=== PATIENT | male | born 1965 | race Caucasian/White ===

== ENCOUNTER → 2017-07-08 | Outpatient (CLI) | payer OTHER ==
--- NOTE | 2017-07-08 12:18 | US ---
LOWER EXTREMITY VENOUS INSUFFICIENCY SIDE PERFORMED: Bilateral Left leg swelling, no hx of blood clots or on blood thinners 1) Color flow is present and patency is documented in the following vessels. No DVT or SVT is noted . EIV Common Femoral Vein Deep Femoral Vein Femoral Vein Popliteal Vein Proximal Calf Veins Greater Saph Vein Upper Small Saph Vein 2) There is venous reflux noted at the following venous levels: No venous reflux seen Limited exam due to patient unable to hold valsalva maneuver Doppler waveforms appear unremarkable. IMPRESSION: 1. No left lower extremity venous reflux evident.
== END ==
LOC: RADUSWWP 09:47
PROVIDERS: ATTEND Family Medicine
DX: I87.2 Venous insufficiency (chronic) (peripheral) (principal); M79.605 Pain in left leg
CPT/HCPCS: 93970

== ENCOUNTER → 2017-08-31 | Outpatient (CLI) | payer OTHER ==
--- NOTE | 2017-08-31 17:51 | CONS ---
CONSULTATION REASON FOR CONSULTATION: Falling asleep easily and always tired. A 51-year-old obese male patient. The patient has incarcerated for a total of 30 years between 1996 and 2016. The patient was released from nursing home recently. He currently is under the care of Dr. Hale and the patient is being investigated for obstructive sleep apnea, knowing that he has been excessively fatigued and sleepy. He snores. He goes to bed between 10:00 p.m. and 11:00 p.m., wakes up between 3:00 a.m. to 4:00 a.m. in the morning and he takes 2-3 naps during the day, these naps lasting between 30 minutes up to 2 hours. Despite this, he is feeling tired and sleepy and this raises concern for obstructive sleep apnea. No reported witnessed apneas in this patient. No restlessness in lower extremities. No chronic pain. He is obese and he has gained weight over the years in the order of 20-30 pounds. No family history of obstructive sleep apnea, although he thinks his sister had narcolepsy. The patient himself has no sleep paralysis, hypnagogic hallucinations or cataplexy. No substance abuse. He is a nonsmoker. PAST MEDICAL HISTORY: 1. Hypertension. 2. Acid reflux. 3. Lactose intolerance. 4. Degenerative arthritis. 5. Chronic leg edema. SURGICAL HISTORY: Negative. ALLERGIES: Not known. OUTPATIENT MEDICATION LIST: Includes: 1. Clindamycin gel. 2. Clotrimazole 1% cream. 3. Lasix 20 mg p.o. daily. 4. Meclizine 25 mg p.o. on a p.r.n. basis as needed. 5. Omeprazole 20 mg p.o. daily. 6. Potassium 10 mg daily. 7. Simethicone 125 mg chewable tablet a day and. 8. Tylenol on a p.r.n. basis. SOCIAL HISTORY: The patient is a nonsmoker. He quit smoking back in 1984. No history of alcohol. No history of IV drugs. FAMILY HISTORY: Questionable history of narcolepsy in his sister, who also had CVAs and she from complications of myocardial infarction. Father was obese. REVIEW OF SYSTEMS: A 12-point review of systems was done. Positive findings are mentioned above in the history of present illness. The patient has difficult mobility and gait, walks around with the help of a cane. He has issues with balance and dizziness. No head trauma for now. No grinding of the teeth. No sleepwalking or sleep talking. No sleep paralysis, hallucinations or cataplexy. No anxiety or depression. No palpitation. No heartburn. No cough or sputum production. No restlessness in the lower extremities. He has no dysuria, frequency or urgency. No open wounds or sores in the lower extremities. BP is 131/77, pulse 82, respirations 16, temperature 16, temperature 97.1, saturation 91% on room air. Neck size 17-1/2 inches. Height is 6 feet 2 inches, weight is 343 and BMI is 43.4. GENERAL APPEARANCE: Calm comfortable. No acute distress. Head is atraumatic, normocephalic. Neck is short, supple. Crowding of posterior pharynx. Mallampati class IV. LUNGS: Clear to auscultation. HEART: Sounds are regular rate and rhythm. Normal S1, S2. No S3, S4. No murmurs. ABDOMEN: Soft, nontender. No organomegaly. EXTREMITIES: No edema. No cyanosis or clubbing. NEUROLOGIC: Alert and oriented x3. No focal neurological deficits. PSYCHIATRIC: Negative for anxiety, possible depression, low grade. IMPRESSION: 1. Obstructive sleep apnea suspected, currently under investigation. The patient has chronic sleepiness with an P[place] score of 12. 2. Obesity with a BMI of 43.4. 3. Hypertension. 4. Acid reflux. 5. Chronic lymphedema. 6. Chronic leg edema. 7. Degenerative arthritis. PLAN: 1. Encourage weight loss. 2. Implement good sleep hygiene measures. 3. Consolidate sleep hours at nighttime and try to avoid taking naps during the day. 4. Proceed with a screening polysomnogram looking for any significant sleep breathing disorder that may need to be treated. MMODL / IJN: [id number] /
== END | disposition home or self-care (01) ==
LOC: SLEEP 14:41
PROVIDERS: ATTEND Internal Medicine Critical Care Medicine
DX: G47.10 Hypersomnia, unspecified (principal); E66.9 Obesity, unspecified; I10 Essential (primary) hypertension; K21.9 Gastro-esophageal reflux disease without esophagitis; I89.0 Lymphedema, not elsewhere classified; R60.0 Localized edema; M19.90 Unspecified osteoarthritis, unspecified site; Z68.41 Body mass index [BMI] 40.0-44.9, adult; Z87.891 Personal history of nicotine dependence; Z79.2 Long term (current) use of antibiotics; Z79.899 Other long term (current) drug therapy
CPT/HCPCS: 99211

== ENCOUNTER → 2017-09-28 | Outpatient (CLI) | payer OTHER ==
--- NOTE | 2017-09-28 17:17 | PN ---
PROGRESS NOTE This patient is coming in to discuss the results of his sleep study. This is a 52-year-old male patient who has been incarcerated for more than 20 years. During that time, the patient has had significant issues with sleep hygiene, and he is at the point where he cannot have a solid 6 hours' sleep. His sleep is quite fragmented. He used to sleep on a very uncomfortable mattress in penitentiary, and currently he is in the process of moving into an apartment. He does not have his own bed yet. He states that the sleep that he had here at the sleep center was one of the best he has had for many years, knowing that the place was very comfortable. In summary, this sleep study showed mild obstructive sleep apnea. His AHI was only at 7; however, his disease was REM-specific with an AHI of 26 during REM sleep. I decided to monitor this patient and go with initial conservative approach of optimizing his sleep hygiene measures and asking him to lose weight. I asked him to make an active effort to lose weight, knowing that he has gained about 20 to 30 pounds recently. He is also taking multiple naps during the day that range between 15 minutes and up to 90 minutes. He naps around 3 to 4 times during the day. He goes to bed around 10:30 p.m. and wakes up at 3 to 4 a.m. in the morning. Otherwise the sleep study did not show any significant periodic limb movements. No significant nocturnal oxygen desaturation. The patient's pulse ox remained above 90% with a minimum pulse ox of 84%. No significant cardiac arrhythmias noted. REVIEW OF SYSTEMS: CONSTITUTIONAL: Obesity with around 20 to 30 pounds' weight gain recently. No fever, chills or night sweats. HEENT: History of snoring. No sore throat or sinus disease or chronic rhinitis. CARDIOVASCULAR: No angina. No palpitations. PULMONARY: No cough or sputum production. GI: Negative for nausea, vomiting or diarrhea. No GERD. is negative for dysuria, frequency, urgency. SKIN: Negative for any wounds or ulcerations. NEUROLOGICAL: Negative for any acute or focal neurological deficits, seizure activity or motor weakness. PHYSICAL EXAMINATION: His current BP is 151/94, pulse 82, respiration 16, saturation 99% on room air. Height is 6 feet 2 inches, weight 345. BMI is 43.2. GENERAL APPEARANCE: Calm, comfortable. Head is atraumatic, normocephalic. Neck is short, supple. There is no JVD. No goiter or neck mass. LUNGS: Diminished breath sounds bilaterally. HEART: Heart sounds are regular rate and rhythm. Normal S1, S2. No S3, S4. No murmurs. ABDOMEN: Soft, nontender. No organomegaly. EXTREMITIES: No edema. No cyanosis or clubbing. NEUROLOGIC: Alert and oriented x3. There is no focal neurological deficit. PSYCHIATRIC: Negative for anxiety or depression. IMPRESSION: 1. Mild nonspecific obstructive sleep apnea with an apnea/hypopnea index of 7, worse during REM (AHI during REM is 26). 2. Poor sleep hygiene measures. 3. Loud snoring. 4. Obesity with a body mass index of of 43. 5. Chronic hypersomnia. 6. Hypertension. 7. Degenerative arthritis. PLAN: Prior to committing this patient to any further treatment, we will ask him to lose around 20 to 30 pounds and optimize his sleep hygiene measures. His naps need to be eliminated during the day and the patient needs to consolidate most of his sleep at night time. He thinks that if he gets a new bed with a mattress, this should improve by itself his sleep quality in general. He will see me back in 6 months' time for re- evaluation. I think it may be worthwhile to try CPAP therapy at later stage, especially if he continues to be somnolent and sleepy. Prior to doing so, we will try to work on this patient's weight loss and sleep hygiene measures. Will continue to follow. MMODL / IJN: [id number] /
== END | disposition home or self-care (01) ==
LOC: SLEEP 15:06
PROVIDERS: ATTEND Internal Medicine Critical Care Medicine
DX: Z53.9 Procedure and treatment not carried out, unspecified reason (principal)

== ENCOUNTER → 2018-06-09 | Outpatient (CLI) | payer OTHER ==
--- NOTE | 2018-06-09 17:22 | PN ---
PROGRESS NOTE DATE OF SERVICE: 06/09/2018 This patient is a 52-year-old gentleman, a patient of Dr. Courtney, who has been followed in the sleep center for obstructive sleep apnea/hypopnea syndrome. Recently the patient had a sleep study which showed apnea-hypopnea index of 7, and then REM- sleep apnea-hypopnea index was 26. Patient is trying to lose weight and change his mattress, but he continues to have significant excessive daytime sleepiness. Today his [place] Sleepiness Scale is 15. Medications are clotrimazole, Lasix, meclizine, omeprazole, ergocalciferol, Lisinopril, loratadine, potassium supplement. PHYSICAL EXAMINATION: GENERAL: A pleasant patient in no distress. VITAL SIGNS: BP 130/70, HR about 100, RR 16, height 6 feet 2 inches, weight 378.8 pounds, body mass index 48.5, temperature 98.0, oxygen saturation at room air 97% HEENT: PERRLA, EOMI. Evaluation of oropharynx showed tongue protrudes midline. Low position of soft palate. NECK: Supple. No JVD. Thyroid is not palpable. LUNGS: Clear to percussion and to auscultation. Good air exchange. No wheezing or rhonchi. HEART: S1, S2 regular. No murmurs, gallops or rubs. ABDOMEN: Obese. EXTREMITIES: No clubbing or cyanosis. GREY WASHER: Awake, alert, and oriented X3. Cranial nerves 2 to 7 intact. There is no fasciculation or atrophy. noted. No focal deficits observed. IMPRESSION: 1. Obstructive sleep apnea/hypopnea syndrome. Patient presented with symptoms of excessive daytime sleepiness. 2. Obesity; body mass index of 48.5. 3. Hypertension. 4. Episodes of vertigo. 5. Episodes of back pain. PLAN: 1. CPAP titration for correction of patient's respiratory abnormalities. 2. Losing weight. 3. Sleep hygiene with regular time in bed for at least 8 hours. 4. No driving if feeling any sleepiness. The patient does not drive a car at the present time. Thank you very much for allowing me to participate in the management of your patient. Sincerely, Lester Andino MD, PhD, FAASM Diplomat of [employer] [employer] [place] [employer] B Operator of [facility] [place] MMODL / IJN: [id number] /
== END ==
LOC: SLEEP 14:53
PROVIDERS: ATTEND Internal Medicine
DX: G47.33 Obstructive sleep apnea (adult) (pediatric) (principal); E66.9 Obesity, unspecified; I10 Essential (primary) hypertension; R42 Dizziness and giddiness; M54.9 Dorsalgia, unspecified; Z68.42 Body mass index [BMI] 45.0-49.9, adult; Z99.89 Dependence on other enabling machines and devices; Z79.899 Other long term (current) drug therapy

== ENCOUNTER 2018-06-29 08:53 | Day surgery (SDC) | payer OTHER ==
[2018-06-28 09:35] VITALS: BMI 46.2
[~2018-06-29 08:53] MED LIST: DEXAMETHASONE SOD PHOSPHATE 10 MG/ML 1 ML VIAL IV ONE; HYDROmorphone 0.5 MG/0.5 ML SYRINGE IVP PRN; LACTATED RINGERS 1,000 ML IV SCH; LIDOCAINE 1% 20 ML VIAL (10MG/ML) FOR IV START INTRADERMA PRN; ONDANSETRON 4 MG/2 ML VIAL IVP ONE; SCOPOLAMINE 1.5MG/72HR PATCH TRANSDERM ONE
[2018-06-29 09:25] VITALS: RESP 16; TEMP 97.4
[2018-06-29] MEDS ORDERED: MIDAZOLAM 2 MG/2 ML VIAL ONE (09:35)
[2018-06-29] MEDS ORDERED: LIDOCAINE 1% INJ 10MG/ML (20 ML MDV) ONE (09:35)
[2018-06-29] MEDS ORDERED: GLYCOPYRROLATE 0.2 MG/ML 2 ML VIAL ONE (09:35)
[2018-06-29] MEDS ORDERED: KETAMINE 10 MG/ML 20 ML VIAL ONE (09:35)
[2018-06-29] MEDS ORDERED: PROPOFOL 10 MG/ML 20 ML VIAL IV ONE (09:35)
--- NOTE | 2018-06-29 09:47 | P.GSHP ---
History of Present Illness H&P Date: 06/29/18 Chief Complaint: Colon cancer screening Patient here today for colonoscopy. No bowel complaints. No family history of colon cancer. Past Medical History Past Medical History: Hyperlipidemia, Hypertension History of Any Multi-Drug Resistant Organisms: None Reported Additional Past Surgical History / Comment(s): EGD Past Anesthesia/Blood Transfusion Reactions: No Reported Reaction Smoking Status: Former smoker - Past Family History Mother Family Medical History: Cancer Sister(s) Family Medical History: Cancer Medications and Allergies Home Medications Medication Instructions Recorded Confirmed Type Ergocalciferol (Vitamin D2) 50,000 unit PO TUTH 06/28/18 06/28/18 History [Vitamin D2] Fenofibrate 54 mg PO HS 06/28/18 06/28/18 History Furosemide [Lasix] 20 mg PO HS 06/28/18 06/28/18 History Lisinopril [Zestril] 5 mg PO HS 06/28/18 06/28/18 History Meclizine [Antivert] 25 mg PO DAILY PRN 06/28/18 06/28/18 History Naproxen [Naprosyn] 500 mg PO Q12HR PRN 06/28/18 06/28/18 History Potassium Chloride [K-Tab ER] 10 meq PO HS 06/28/18 06/28/18 History Allergies Allergy/AdvReac Type Severity Reaction Status Date / Time No Known Allergies Allergy Verified 06/29/18 09:24 Surgical - Exam Vital Signs Temp Pulse Resp BP Pulse Ox 97.4 F L 90 16 147/81 97 06/29/18 09:22 06/29/18 09:22 06/29/18 09:22 06/29/18 09:22 06/29/18 09:22 Physical exam: General: Well-developed, well-nourished HEENT: Normocephalic, sclerae nonicteric Abdomen: Nontender, nondistended Extremities: No edema Neuro: Alert and oriented Assessment and Plan (1) Colon cancer screening Narrative/Plan: Will proceed with colonoscopy Current Visit: Yes Status: Acute Code(s): Z12.11 - ENCOUNTER FOR SCREENING FOR MALIGNANT NEOPLASM OF COLON SNOMED Code(s): 840947259
--- NOTE | 2018-06-29 10:02 | P.PCN ---
Date of Procedure: 06/29/18 Procedure(s) Performed: PREOPERATIVE DIAGNOSIS: Colon cancer screening POSTOPERATIVE DIAGNOSIS: Ascending colon polyp, rectal polyp PROCEDURE: Colonoscopy with snare polypectomy ANESTHESIA: MAC SURGEON: Casimiro Mccrary M.D. SPECIMENS: Polyps ENDOSCOPIC PROCEDURE: The patient was placed on the endoscopy table in the left decubitus position. The Olympus colonoscope was inserted into the anus and passed under direct visualization to the proximal ascending colon. I could visualize the cecum and the base of the cecum with decent view but was unable to advance all the way to the base of the cecum given the patient's large body habitus displayed a variety of different methods. In the mid ascending colon a small polyp was identified and removed using the snare with cautery technique. The remainder of the ascending, transverse, descending, and sigmoid colon appeared normal. In the distal rectum a small polyp was again identified and removed using the snare with cautery technique. The remainder the rectum was normal. There is no visible diverticulosis. The patient's prep was somewhat suboptimal. Digital rectal examination was normal. The patient was taken to the recovery room in stable condition per anesthesia guidelines. RECOMMENDATIONS: Await biopsy results. Anticipate follow-up colonoscopy 5 years.
[2018-06-29 10:31] VITALS: BP 130/87; PULSE 93
== END 2018-06-29 10:52 | disposition home or self-care (01) ==
LOC: ORWHC2ENDO 08:53
PROVIDERS: ATTEND Surgery
DX: Z12.11 Encounter for screening for malignant neoplasm of colon (principal); D12.2 Benign neoplasm of ascending colon; K62.1 Rectal polyp; E78.5 Hyperlipidemia, unspecified; I10 Essential (primary) hypertension; E66.01 Morbid (severe) obesity due to excess calories; G47.33 Obstructive sleep apnea (adult) (pediatric); Z87.891 Personal history of nicotine dependence; Z79.899 Other long term (current) drug therapy; Z68.42 Body mass index [BMI] 45.0-49.9, adult
CPT/HCPCS: 88305; 45385; J2250; J2001; J2704

== ENCOUNTER → 2018-09-01 | Outpatient (CLI) | payer OTHER ==
--- NOTE | 2018-09-01 11:39 | SFUN ---
SLEEP CENTER FOLLOW UP NOTE DATE OF SERVICE: 09/01/2018 A 52-year-old gentleman who has been followed in the Sleep Center for treatment of obstructive sleep apnea-hypopnea syndrome. Recently patient had CPAP titration and after that he received new CPAP unit. Today is his first visit after he received new machine. He is able to use machine every night without problems. He is using nasal pillow mask. He likes it. He sleeps well with the machine. [place] Sleepiness Scale today is 8, which is normal. I checked his CPAP unit, range of the pressure 5-10, 95% pressure is 7.7, usage is 29/30 nights and 24/30 nights more than 4 hours. Average usage 4.7 hours. Leak is 24 L/minute, which is borderline. Apnea-hypopnea index 1.9, which is absolutely normal. MEDICATIONS: Meclizine, omeprazole, lisinopril, Lasix, Loratadine, potassium supplement, clotrimazole. PHYSICAL EXAM: Patient in no distress. BP 127/84, HR 80, RR 16, weight 372 pounds. Temperature 97.6. Oxygen saturation at room air 98%. OROPHARYNX: Extremely low position of soft palate. Mallampati 4. ABDOMEN: Obese. Neck Supple, no JVD. Thyroid is not palpable. LUNGS Clear to percussion and to auscultation. Good air exchange. No wheezing or rhonchi. HEART S1, S2 regular. No murmurs, gallops, or rubs. EXTREMITIES No clubbing or cyanosis. RAG GRADER Awake, alert, and oriented X3. Cranial nerves 2 to 7 intact. There is no fasciculation or atrophy. noted. No focal deficits observed. IMPRESSION: 1. Obstructive sleep apnea-hypopnea syndrome, on full control with CPAP. Patient demonstrated great compliance with treatment benefitting from treatment. 2. Obesity. 3. Hypertension. 4. Episodes of vertigo. 5. Episodes of back pain. PLAN: 1. Patient will continue to use CPAP equipment every night for the whole night. 2. I discussed with the patient possibility to use chinstrap to decrease leak. I believe he may have some leak from the mouth, but patient prefer not to do it. He feels more comfortable without chin strap. His apnea-hypopnea index normal, so I believe it is not necessary to use a chin strap. 3. Losing weight. 4. Sleep hygiene with regular time in bed for at least 8 hours. 5. No driving if feeling sleepiness. 6. Followup visit in 1 year or earlier if patient has any problems. Thank you very much for allowing me to participate in the management of your patient. Sincerely, Lester Andino MD, PhD, FAASM Diplomat of [place] [employer] [employer] Gas Booster Engineer of [facility] [place] MMODL / ANDRÉSN: [id number] /
== END ==
LOC: SLEEP 10:21
PROVIDERS: ATTEND Internal Medicine
DX: G47.33 Obstructive sleep apnea (adult) (pediatric) (principal); I10 Essential (primary) hypertension; R42 Dizziness and giddiness; M54.9 Dorsalgia, unspecified; Z99.89 Dependence on other enabling machines and devices; Z79.899 Other long term (current) drug therapy

== ENCOUNTER → 2020-02-05 | Outpatient (CLI) | payer OTHER ==
[2020-02-05 15:07] LABS: HCT 36.1 % (39.0-53.0); Hypochromasia Slight; MCH 28.6 pg (25.0-35.0); MCHC 33.2 g/dL (31.0-37.0); Mean Platelet Volume 8.2; Platelet Count 187 k/uL (150-450); Poikilocytosis Slight; RDW 15.6 % (11.5-15.5); WBC 4.4 k/uL (3.8-10.6)
[2020-02-06 04:00] LABS: Prolactin 5.6 ng/mL (2.1-17.7)
[2020-02-06 04:01] LABS: Follicle Stimulating Hormone 30.9 mIU/mL; Luteinizing Hormone 13.9 mIU/mL; T4, Free (Free Thyroxine) 1.1 ng/dL (0.80-1.80)
[2020-02-06 04:05] LABS: Prostate Specific Antigen 3.7 ng/mL (0.0-3.5)
== END | disposition home or self-care (01) ==
LOC: LABWHC1 13:40
PROVIDERS: ATTEND Internal Medicine
DX: E29.1 Testicular hypofunction (principal)
CPT/HCPCS: 36415; 83001; 83002; 84146; 84153; 84270; 84402; 84403; 84439; 84443; 85027

== ENCOUNTER → 2022-10-09 | Outpatient (CLI) | payer OTHER ==
--- NOTE | 2022-10-09 14:25 | US ---
EXAMINATION TYPE: US thyroid st tissue head/neck DATE OF EXAM: 10/09/2022 COMPARISON: NONE CLINICAL HISTORY: R13.10 DYSPHAGIA, UNSPECIFIED. Pt states difficulty swallowing Large pt body habitus, difficult exam GLAND SIZE: Right Lobe: 4.1 x 1.7 x 1.7 cm Overall Parenchyma: homogenous Left Lobe: 4.2 x 1.4 x 1.6 cm Overall Parenchyma: homogeneous Isthmus Thickness: 0.5 cm NODULES RIGHT: # of nodules measured on right: 0 LEFT: # of nodules measured on left: 0 ISTHMUS: # of nodules measured in the isthmus: 1 1. 0.3 X 0.3 x 0.3 cm solid or almost completely solid, calcified nodule, which is wider than tall, with smooth margins, without echogenic foci. Prior size: no prior Bilateral neck scanned, no evidence of lymphadenopathy. Sub-centimeter calcified nodule within the is thmus, otherwise thyroid appeared wnl. IMPRESSION: nonspecific nodularity.
== END | disposition home or self-care (01) ==
LOC: RADUSWWP 13:54
PROVIDERS: ATTEND Family Medicine
DX: R13.10 Dysphagia, unspecified (principal)
CPT/HCPCS: 76536

== ENCOUNTER 2023-03-24 06:43 | Day surgery (SDC) | payer OTHER ==
[2023-03-23 10:56] VITALS: BMI 41.6
[2023-03-24] MEDS ORDERED: LIDOCAINE 1% (10MG/ML) FOR IV START INTRADERMA PRN (07:21)
[2023-03-24] MEDS ORDERED: LACTATED RINGERS 1,000 ML IV SCH (07:21)
[2023-03-24 07:25] VITALS: TEMP 98
[2023-03-24 07:33] LABS: Glucose,Whole Blood 130 mg/dL (70-110)
[2023-03-24] MEDS ORDERED: LIDOCAINE 2% INJ 20 MG/ML (2 ML VIAL) ONE (07:51)
[2023-03-24] MEDS ORDERED: PROPOFOL 10 MG/ML 20 ML VIAL IV ONE (07:51)
--- NOTE | 2023-03-24 08:13 | P.PCN ---
Date of Procedure: 03/24/23 Procedure(s) Performed: Brief history: Patient is a pleasant 57-year-old white male scheduled for an elective upper endoscopy as well as colonoscopy as a part of evaluation of GERD/anemia and screening for colon cancer Procedure performed: Esophagogastroduodenoscopy with biopsy Colonoscopy with biopsy Preoperative diagnosis: GERD/anemia Screening for colon cancer Anesthesia: MAC Procedure: After informed consent was obtained from the patient was brought into the endoscopy unit and IV sedation was administered by anesthesia under continuous monitoring. Initially upper endoscopy was done. The Olympus GF 160 video endoscope was inserted inserted into the mouth and esophagus intubated without any difficulty and was gradually advanced into the stomach and duodenum and carefully examined. The bulb and second part of the duodenum appeared normal. Biopsies were done from the duodenum to rule out celiac disease. The scope was then withdrawn into the stomach adequately insufflated with air and upon careful examination the antrum had mild antral gastritis and biopsies were done from this area. Mucosa of the body, cardia and fundus appeared normal. The scope was then withdrawn into the esophagus. Mall hiatal hernia noted. The GE junction was located at 40 cm to the incisors. It appeared regular with no erythema erosions or ulcerations. Rest of the esophagus appeared normal. Patient tolerated the procedure well. At this time the patient continued to remain sedation. Initial digital rectal examination was normal. Olympus CF 160 video colonoscope was then inserted into the rectum and gradually advanced to the cecum without any difficulty. Careful examination was performed as the scope was gradually being withdrawn. The prep was excellent. The cecum, appeared normal. In the ascending colon there was a 5 limited polyp that was removed by cold biopsy. In the descending colon there was a 3 mm polyp removed by cold biopsy. Rest of the ascending colon, transverse colon, descending colon, sigmoid colon and rectum appeared normal. In the sigmoid colon there was a 3 mm polyp removed by cold biopsy. Retroflexion was performed in the rectum and no lesions were noted. Patient tolerated the procedure well. Impression: 1. Upper endoscopy revealed mild antral gastritis and small hiatal hernia. 2. Colonoscopy revealed a 4 mm ascending colon polyp, 3 mm descending colon polyp and a 3 mm rectal polyp all removed by cold biopsy. Recommendations: Findings of this examination were discussed with the patient as well as his family. He was advised to follow with the biopsy results. If the biopsy results adenoma he can have a repeat colonoscopy in 5 years.
[2023-03-24 08:20] VITALS: RESP 16
[2023-03-24 08:33] LABS: Glucose,Whole Blood 109 mg/dL (70-110)
[2023-03-24 08:37] VITALS: BP 138/72; PULSE 81
== END 2023-03-24 08:46 | disposition home or self-care (01) ==
LOC: ORWHC2ENDO 06:43
PROVIDERS: ATTEND Internal Medicine Gastroenterology
DX: Z12.11 Encounter for screening for malignant neoplasm of colon (principal); K29.50 Unspecified chronic gastritis without bleeding; D64.9 Anemia, unspecified; K44.9 Diaphragmatic hernia without obstruction or gangrene; D12.2 Benign neoplasm of ascending colon; D12.4 Benign neoplasm of descending colon; K62.1 Rectal polyp; I10 Essential (primary) hypertension; E78.5 Hyperlipidemia, unspecified; E11.9 Type 2 diabetes mellitus without complications; G47.419 Narcolepsy without cataplexy; Z79.83 Long term (current) use of bisphosphonates; Z79.811 Long term (current) use of aromatase inhibitors; Z79.01 Long term (current) use of anticoagulants; Z79.899 Other long term (current) drug therapy
CPT/HCPCS: 88305; 45380; 43239; J2704; J2001

== ENCOUNTER 2023-04-12 17:52 | Emergency (ER) | payer OTHER ==
[2023-04-12 18:08] VITALS: TEMP 98
--- NOTE | 2023-04-12 19:16 | ED ---
General Adult HPI - General Chief complaint: ENT Stated complaint: Ear Ona Cushion stuck in R Ear Time Seen by Provider: 04/12/23 18:50 Source: patient, RN notes reviewed, old records reviewed Mode of arrival: ambulatory Limitations: no limitations - History of Present Illness Initial comments: This is a 57-year-old male who presents emergency department stating that he has the ear piece from his ear pods in his left right ear. Patient states was it occurred about 2 hours ago she states she's been unable to get it out of his ear. Patient denies any other problems at this time - Related Data Home Medications Medication Instructions Recorded Confirmed Ergocalciferol (Vitamin D2) 50,000 unit PO Q7D 06/28/18 03/24/23 [Vitamin D2] Furosemide [Lasix] 40 mg PO DAILY 06/28/18 03/24/23 Potassium Chloride [K-Tab ER] 10 meq PO DAILY 06/28/18 03/24/23 lisinopriL [Zestril] 5 mg PO DAILY 06/28/18 03/24/23 Fenofibrate 54 mg PO DAILY 03/23/23 03/24/23 Omeprazole 20 mg PO DAILY 03/23/23 03/24/23 glipiZIDE [Glucotrol] 10 mg PO [id number] 03/23/23 03/24/23 metFORMIN HCL [Glucophage] 1,000 mg PO BID 03/23/23 03/24/23 sitaGLIPtin [Januvia] 100 mg PO DAILY 03/23/23 03/24/23 Allergies Allergy/AdvReac Type Severity Reaction Status Date / Time No Known Allergies Allergy Verified 04/12/23 17:59 Review of Systems ROS Statement: Those systems with pertinent positive or pertinent negative responses have been documented in the HPI. ROS Other: All systems not noted in ROS Statement are negative. Past Medical History Past Medical History: Diabetes Mellitus, Hyperlipidemia, Hypertension Additional Past Medical History / Comment(s): NARCOLEPSY. BLE EDEMA History of Any Multi-Drug Resistant Organisms: None Reported Additional Past Surgical History / Comment(s): EGD Past Anesthesia/Blood Transfusion Reactions: No Reported Reaction Past Psychological History: No Psychological Hx Reported Smoking Status: Former smoker Past Alcohol Use History: Occasional Past Drug Use History: None Reported General Exam - General Exam Comments Initial Comments: GENERAL Patient is well-developed and well-nourished. Patient is in mild distress. ENT Patient's right ear has foreign body in it which is consistent with an earpiece EYES Patient's pupils are equal and round. Extraocular motion is intact SKIN Unremarkable NEURO The patient is alert and oriented 3 PYSCH Patient has normal interpersonal interactions. MUSCULOSKELETAL All 4 extremities have full range of motion Limitations: no limitations Course Vital Signs 04/12/23 17:57 Temperature 98 F Pulse Rate 84 Respiratory 16 Rate Blood Pressure 130/80 O2 Sat by Pulse 98 Oximetry Procedures - Procedures Initial comment: I removed a foreign body out of the right ear with the alligator forceps Medical Decision Making - Medical Decision Making Was pt. sent in by a medical professional or institution (, PA, MATERIAL COORDINATOR, urgent care, hospital, or longterm...) When possible be specific @ -No Did you speak to anyone other than the patient for history (EMS, parent, family, police, friend...)? What history was obtained from this source @ -No Did you review nursing and triage notes (agree or disagree)? Why? @ -I reviewed and agree with nursing and triage notes Were old charts reviewed (outside hosp., previous admission, EMS record, old EKG, old radiological studies, urgent care reports/EKG's, longterm records)? Report findings @ -No old charts were reviewed Differential Diagnosis (chest pain, altered mental status, abdominal pain women, abdominal pain men, vaginal bleeding, weakness, fever, dyspnea, syncope, headache, dizziness, GI bleed, back pain, seizure, CVA, palpatations, mental health, musculoskeletal)? @ -not applicable EKG interpreted by me (3pts min.). @ -As above X-rays interpreted by me (1pt min.). @ -None done CT interpreted by me (1pt min.). @ -None done U/S interpreted by me (1pt. min.). @ -None done What testing was considered but not performed or refused? (CT, X-rays, U/S, labs)? Why? @ -None What meds were considered but not given or refused? Why? @ -None Did you discuss the management of the patient with other professionals (professionals i.e. , RADHA, MATERIAL COORDINATOR, lab, RT, psych nurse, social media manager, workers compensation attorney, teacher, sea air land officer, caseworker protective services)? Give summary @ -No Was smoking cessation discussed for >3mins.? @ -No Was critical care preformed (if so, how long)? @ -No Were there social determinants of health that impacted care today? How? (Homelessness, low income, unemployed, alcoholism, drug addiction, transportat ion, low edu. Level, literacy, decrease access to med. care, intermediate, rehab)? @ -No Was there de-escalation of care discussed even if they declined (Discuss DNR or withdrawal of care, Hospice)? DNR status @ -No What co-morbidities impacted this encounter? (DM, HTN, Smoking, COPD, CAD, Cancer, CVA, ARF, Chemo, Hep., AIDS, mental health diagnosis, sleep apnea, morbid obesity)? @ -None Was patient admitted / discharged? Hospital course, mention meds given and route, prescriptions, significant lab abnormalities, going to OR and other pertinent info. @ -Foreign body was removed out of the right ear Undiagnosed new problem with uncertain prognosis? @ -No Drug Therapy requiring intensive monitoring for toxicity (Heparin, Nitro, Insulin, Cardizem)? @ -No Were any procedures done? @ -No Diagnosis/symptom? @ -Right ear foreign body Acute, or Chronic, or Acute on Chronic? @ -Acute Uncomplicated (without systemic symptoms) or Complicated (systemic symptoms)? @ -Doppler complicated Side effects of treatment? @ -No Exacerbation, Progression, or Severe Exacerbation? @ -No Poses a threat to life or bodily function? How? (Chest pain, [place], [place], pneumonia, PE, COPD, DKA, ARF, appy, cholecystitis, CVA, Diverticulitis, Homicidal, Suicidal, threat to staff... and all critical care pts) @ -No Disposition Clinical Impression: Foreign body in ear Disposition: HOME SELF-CARE Condition: Good Instructions (If sedation given, give patient instructions): Ear Foreign Body (ED) Is patient prescribed a controlled substance at d/c from ED?: No Referrals: Merly Hale MD [Primary Care Provider] - 1-2 days Time of Disposition: 19:14
[2023-04-12 19:26] VITALS: BP 120/72; PULSE 91; RESP 18
== END 2023-04-12 19:26 | disposition home or self-care (01) ==
LOC: EC 17:52
DX: T16.2XXA Foreign body in left ear, initial encounter (principal); E11.9 Type 2 diabetes mellitus without complications; I10 Essential (primary) hypertension; Z87.891 Personal history of nicotine dependence; Z79.84 Long term (current) use of oral hypoglycemic drugs; W45.8XXA Other foreign body or object entering through skin, initial encounter
CPT/HCPCS: 69000; 69200; 99282

== ENCOUNTER → 2023-10-11 | Outpatient (CLI) | payer OTHER ==
--- NOTE | 2023-10-11 17:53 | US ---
EXAMINATION TYPE: US thyroid st tissue head/neck DATE OF EXAM: 10/11/2023 COMPARISON: US CLINICAL INDICATION: Male, 58 years old with history of E04.1 NONTOXIC SINGLE THYROID NODULE; F/U GLAND SIZE: Right Lobe: 4.8 x 1.8 x 1.7 cm Overall Parenchyma: homogeneous Left Lobe: 3.7 x 1.6 x 1.7 cm Overall Parenchyma: homogeneous Isthmus Thickness: 0.5 cm NODULES RIGHT: # of nodules measured on right: 0 LEFT: # of nodules measured on left: 0 ISTHMUS: # of nodules measured in the isthmus: 1 1. 0.4 X 0.3 x 0.4 cm Calcified nodule, which is wider than tall, with smooth margins Prior size: 0.3 x 0.3 x 0.3 cm Bilateral neck scanned, no evidence of lymphadenopathy. Small calcified nodule right isthmus, essenti ally unchanged. IMPRESSION: 1. No suspicious nodules
== END | disposition home or self-care (01) ==
LOC: RADUSWWP 14:07
PROVIDERS: ATTEND Family Medicine
DX: E04.1 Nontoxic single thyroid nodule (principal)
CPT/HCPCS: 76536

== ENCOUNTER → 2024-04-17 | Outpatient (CLI) | payer OTHER ==
--- NOTE | 2024-04-20 00:30 | MR ---
EXAMINATION TYPE: MR knee RT wo con DATE OF EXAM: 04/17/2024 COMPARISON: Bilateral knee x-ray April 14, 2024 HISTORY: Bilateral knee pain since 2023 due to fall. TECHNIQUE: Multiplanar, multisequence images of the knee is performed without IV contrast. FINDINGS: MEDIAL MENISCUS: Triangular shaped increased signal posterior horn does not definitively extend to ar ticular surface. LATERAL MENISCUS: Anterior horn truncated with abnormal signal extending to articular surface. Commercial Artist ior horn shows oblique signal extending to inferior articular surface. CRUCIATE LIGAMENTS: The posterior cruciate ligament is intact and unremarkable. Increased signal and fanning of fibers of the anterior cruciate ligament COLLATERAL LIGAMENTS: The medial collateral ligament and lateral collateral ligament complex are inta ct and unremarkable. EXTENSOR MECHANISM: Visualized quadriceps and patellar tendons are intact. EFFUSION: Small to moderate size suprapatellar joint effusion. POPLITEAL CYST: No popliteal/lundberg cyst. TRICOMPARTMENT SPACES: Moderate to severe narrowing patellofemoral compartment with uwav-om-afiqgntg spurring. Moderate to severe narrowing and moderate spurring lateral tibiofemoral compartment. Modera te spurring of medial tibial femoral compartment. CARTILAGE: Significant cartilaginous loss lateral tibiofemoral compartment. Cartilaginous thinning or chondromalacia patella along the posterior patellar pole. BONE MARROW SIGNAL: Areas of heterogeneous diminished T1 and increased T2 signal lateral tibiofemoral compartment and the anterior aspect of the distal lateral femoral condyle. Smaller areas of involvem ent along the inferior aspect of the patellar pole noted. OTHER: Mild to moderate diffuse subcutaneous edema. IMPRESSION: 1. Tricompartment degenerative changes that are fairly severe especially for patient's chronologic ag e patellofemoral and lateral tibiofemoral compartments as detailed above. 2. Full-thickness tears involving the anterior and posterior horns of the lateral meniscus. 3. Myxoid degeneration/partial tearing of the ACL. 4. Small to moderate sized suprapatellar joint effusion. 5. Intrasubstance tear posterior horn medial meniscus. [facility], , 04/20/2024 12:27 AM
--- NOTE | 2024-04-20 00:34 | MR ---
EXAMINATION TYPE: MR knee LT wo con DATE OF EXAM: 04/17/2024 COMPARISON: Outside bilateral knee x-ray April 14, 2024 HISTORY: Bilateral knee pain since 2023 due to fall. TECHNIQUE: Multiplanar, multisequence images of the knee is performed without IV contrast. FINDINGS: MEDIAL MENISCUS: Horizontal increased signal central body and posterior horn extends to inferior niyah cular surface. Posterior horn is truncated. LATERAL MENISCUS: Anterior and posterior horns are intact without tear. CRUCIATE LIGAMENTS: The anterior and posterior cruciate ligaments are intact and unremarkable. COLLATERAL LIGAMENTS: The medial collateral ligament and lateral collateral ligament complex are inta ct and unremarkable. EXTENSOR MECHANISM: Visualized quadriceps and patellar tendons are intact. EFFUSION: No significant suprapatellar joint effusion. POPLITEAL CYST: No popliteal/lundberg cyst. TRICOMPARTMENT SPACES: Severe narrowing and moderate spurring patellofemoral compartment left knee is more prominent then the opposite right knee. Moderate spurring medial and lateral tibiofemoral leidy rtments with [id number]-gm-vekqsskr narrowing. CARTILAGE: Chondromalacia patella with full-thickness cartilaginous loss along the posterior patellar pole. BONE MARROW SIGNAL: No focal abnormal marrow signal is appreciated. OTHER: Mild to moderate diffuse subcutaneous edema. IMPRESSION: 1. Tricompartment degenerative changes are present as detailed above. Severe findings patellofemoral compartment noted and more prominent then the opposite right knee. Degenerative change of the lateral tibiofemoral compartment however is less prominent than the opposite right knee. 2. Full-thickness tear posterior horn into central body of the medial meniscus. [facility], , 04/20/2024 12:31 AM
== END | disposition home or self-care (01) ==
LOC: RADMRIMAIN 16:47
PROVIDERS: ATTEND Orthopaedic Surgery
DX: S83.241A Other tear of medial meniscus, current injury, right knee, initial encounter (principal); S83.242A Other tear of medial meniscus, current injury, left knee, initial encounter; M25.461 Effusion, right knee; M17.0 Bilateral primary osteoarthritis of knee

== ENCOUNTER → 2024-05-02 | Outpatient (CLI) | payer OTHER ==
[2024-05-02 15:48] LABS: Basophils # (A) 0.05 X 10*3/uL (0.00-0.10); Basophils % (A) 1.1 %; Eosinophils # (A) 0.26 X 10*3/uL (0.04-0.35); Eosinophils % (A) 5.5 %; HCT 39.4 % (39.6-50.0); HGB 12.5 g/dL (13.0-17.0); Lymphocytes # (A) 1.39 X 10*3/uL (0.90-5.00); Lymphocytes % (A) 29.3 %; MCH 27.4 pg (27.0-32.0); MCHC 31.7 g/dL (32.0-37.0); MCV 86.4 FL (80.0-97.0); Mean Platelet Volume 9.7 FL (9.5-12.2); Monocytes # (A) 0.43 X 10*3/uL (0.20-1.00); Monocytes % (A) 9.1 %; NRBC Per 100 WBC 0 X 10*3/uL (0.00-0.01); Neutrophils # (A) 2.59 X 10*3/uL (1.80-7.70); Neutrophils % (A) 54.6 %; Platelet Count 217 X 10*3/uL (140-440); RBC 4.56 X 10*6/uL (4.40-5.60); RDW 15.9 % (11.5-14.5); WBC 4.74 X 10*3/uL (4.50-10.00)
[2024-05-02 17:32] LABS: Anion Gap 12.8 mmol/L (4.00-12.00); Carbon Dioxide 24.2 mmol/L (21.6-31.8); Potassium 4.3 mmol/L (3.5-5.5)
== END | disposition home or self-care (01) ==
LOC: LABPAT 12:07
PROVIDERS: ATTEND Orthopaedic Surgery
CPT/HCPCS: 36415; 80051; 85025; 93005

== ENCOUNTER 2024-05-24 08:49 | Day surgery (SDC) | payer OTHER ==
--- NOTE | 2024-05-23 23:30 | HP ---
HISTORY AND PHYSICAL DATE OF SURGERY: 05/24/2024. HISTORY OF PRESENT ILLNESS: Dashawn Rosa is a 58-year-old gentleman seen with progressive right knee pain. We discussed options regarding treatment. He elected to proceed with right knee arthroscopy. Consent was obtained. PAST MEDICAL HISTORY: Hypertension, hyperlipidemia, ayj-fmoelwp-vkeqatddy diabetes, gastroesophageal reflux disease PAST SURGICAL HISTORY: Noncontributory. DAILY MEDICATIONS: 1. Metformin. 2. Glipizide. 3. Omeprazole. 4. Lisinopril. ALLERGIES: None. SOCIAL HISTORY: Denies tobacco use. PHYSICAL EVALUATION OF THE RIGHT KNEE: His range of motion is 0 to 125 degrees. Mild effusion. Tenderness, medial joint line. Positive medial Brea's. Ligaments stable. Hip rotation without pain. Distal neurovascular exam is intact. IMAGING STUDIES: Radiographs of the right knee revealed moderate osteoarthritis. MRI of right knee, medial and lateral meniscal tears, osteoarthritis. IMPRESSION: 1. Internal derangement of right knee with medial and lateral meniscal tears. 2. Hypertension. 3. Hyperlipidemia. 4. Rci-vburncr-opoinqggn diabetes. PLAN: Right knee arthroscopy with partial medial meniscectomy and debridement. MMODL / IJN: [id number] /
[~2024-05-24 08:49] MED LIST changes: -DEXAMETHASONE SOD PHOSPHATE 10 MG/ML 1 ML VIAL IV ONE; -LACTATED RINGERS 1,000 ML IV SCH; -LIDOCAINE 1% 20 ML VIAL (10MG/ML) FOR IV START INTRADERMA PRN; -ONDANSETRON 4 MG/2 ML VIAL IVP ONE; -SCOPOLAMINE 1.5MG/72HR PATCH TRANSDERM ONE
[2024-05-24] MEDS: IV FLUID CONTINUATION 1,000 ML IV ONE (09:15)
[2024-05-24] MEDS: LACTATED RINGERS 1,000 ML IV SCH (09:48)
[2024-05-24 09:49] LABS: Glucose,Whole Blood 218 mg/dL (70-110)
[2024-05-24] MEDS: ONDANSETRON 4 MG/2 ML VIAL IVP ONE (09:54)
[2024-05-24] MEDS: DEXAMETHASONE SOD PHOSPHATE 4 MG/ML 1 ML VIAL IV ONE (09:55)
[2024-05-24] MEDS: INSULIN ASPART (NovoLOG) 100 UNIT/ML VIAL SQ ONE (10:04)
[2024-05-24] MEDS: BUPIVACAINE (PF) 0.25% 30 ML VIAL MISCELLANE ONE ×2 (10:47→11:27)
[2024-05-24] MEDS ORDERED: SUCCINYLCHOLINE CHLORIDE 200 MG/10 ML VIAL IV ONE (10:50)
[2024-05-24] MEDS ORDERED: fentaNYL (PF) 50 MCG/ML 2 ML AMP ONE (10:50)
[2024-05-24] MEDS ORDERED: PROPOFOL 10 MG/ML 20 ML VIAL IV ONE ×2 (10:50→11:11)
[2024-05-24] MEDS ORDERED: LIDOCAINE 1% INJ 10MG/ML (20 ML MDV) ONE (10:50)
[2024-05-24] MEDS: ceFAZolin 3 GM in SODIUM CHLORIDE 0.9% 100 ML IVPB PRN (10:54)
--- NOTE | 2024-05-24 11:45 | P.OP ---
Date of Procedure: 05/24/24 Preoperative Diagnosis: Internal derangement right knee Postoperative Diagnosis: 1. Medial and lateral meniscal tears right knee 2. Grade IV chondromalacia femoral sulcus right knee 3. Grade IV chondromalacia lateral tibial plateau right knee 4. Reactive synovitis medial, lateral and suprapatellar compartments right knee 5. Partial ACL tear right knee Procedure(s) Performed: 1. Arthroscopic partial medial and lateral meniscectomy right knee 2. Arthroscopic microfracture femoral sulcus right knee 3. Arthroscopic microfracture lateral tibial plateau right knee 4. Arthroscopic partial synovectomy medial, lateral and suprapatellar compartments right knee 5. Arthroscopic debridement partial ACL tear right knee Anesthesia: GETA, local Surgeon: Bony Lucero Estimated Blood Loss (ml): 7 Pathology: none sent Condition: stable Disposition: PACU Indications for Procedure: 58-year-old gentleman seen with progressive right knee pain. After having treatment options discussed, he elected to proceed with arthroscopy. Operative Findings: See description of procedure Description of Procedure: Patient was taken to the operative suite. Patient underwent a general anesthetic by the department of anesthesia. Patient was given preoperative antibiotics. The right lower extremity was placed in a well-padded arthroscopic leg bolden. The right leg was prepped and draped in the normal sterile orthopedic fashion. A lateral parapatellar and suprapatellar incision was made. Trochars were inserted. Arthroscopy was initiated. Suprapatellar pouch revealed diffuse thick reactive synovitis. The patellofemoral joint appeared to articulate congruently. There was an area of grade IV chondromalacia involving the femoral sulcus with osteochondral flap tears present. The scope was guided into the medial gutter. No loose bodies or plica were identified. The scope was then guided into the medial compartment. A medial parapatellar incision was made. Trocar inserted followed by probe. There was a medial tear involving the mid body of the medial meniscus. There were grade I/II chondromalacia changes medial compartment without tears. There was some thick reactive synovitis anteriorly. I performed a partial medial meniscectomy getting down to stable meniscal tissue. I performed a partial synovectomy decompressing the reactive synovitis. The residual meniscus was stable. There was good decompression of the synovitis. Scope and probe were then guided into the intercondylar notch. Some partial tearing of the anterior cruciate ligament. I reduced a motorized shaver and I debrided that out. It involves about 50% ligament. The residual 50% was stable. The scope and probe were then guided into lateral compartment. There was a complex tear involving the anterior horn, mid body and posterior horns of lateral meniscus. There were grade 4 chondral change along the tibial plateau measuring almost 2 cm. There was thick reactive synovitis anteriorly. I performed a partial lateral meniscectomy getting down to stable meniscal tissue. I performed a partial synovectomy decompressing the reactive synovitis anteriorly. I introduced a microfracture awl and I performed a microfracture to that of exposed bone along the lateral tibial plateau penetrating the bone with resultant bleeding at the microfracture site. The residual areas of meniscus were stable. There was good decompression of the synovitis. The scope was in guided back into the suprapatellar compartment. I reduced a motorized shaver into the suprapatellar compartment. I debrided some piecemeal fragments of meniscus I encountered. I performed a partial synovectomy. I performed a chondroplasty of that femoral sulcus area. I did note an area of exposed bone measuring just over a centimeter. I had used a microfracture awl and I performed a microfracture to the area of exposed bone of the femoral sulcus penetrating the bone with resultant bleeding at the microfracture site. The residual osteochondral surface was probed and was found to be stable. I took more look around the entire knee, no residual debris. Instruments were now removed from the joint. The joint was infiltrated with .25% Marcaine. Steri- Strips were applied to the portal sites. Sterile dressings were applied. The patient was placed into a JAREN hose. No tourniquet was utilized. The patient was awakened, transferred to a bed and taken to recovery stable satisfactory condition.
[2024-05-24 11:49] VITALS: RESP 16; TEMP 97
[2024-05-24 12:06] LABS: Glucose,Whole Blood 238 mg/dL (70-110)
[2024-05-24 12:42] VITALS: BP 126/81; PULSE 80
== END 2024-05-24 12:57 | disposition home or self-care (01) ==
LOC: OR 08:49
PROVIDERS: ATTEND Orthopaedic Surgery
DX: S83.271A Complex tear of lateral meniscus, current injury, right knee, initial encounter (principal); S83.241A Other tear of medial meniscus, current injury, right knee, initial encounter; S83.511A Sprain of anterior cruciate ligament of right knee, initial encounter; M17.11 Unilateral primary osteoarthritis, right knee; M94.261 Chondromalacia, right knee; M65.861 Other synovitis and tenosynovitis, right lower leg; I10 Essential (primary) hypertension; E11.9 Type 2 diabetes mellitus without complications; E78.5 Hyperlipidemia, unspecified; K21.9 Gastro-esophageal reflux disease without esophagitis; G47.419 Narcolepsy without cataplexy; F41.0 Panic disorder [episodic paroxysmal anxiety]; E66.01 Morbid (severe) obesity due to excess calories; Z79.85 Long-term (current) use of injectable non-insulin antidiabetic drugs; Z79.84 Long term (current) use of oral hypoglycemic drugs; Z79.899 Other long term (current) drug therapy
CPT/HCPCS: 29880; 29879; 29876; J0330; J1100; J0690; J2405; J2003; J3010; J2704; J0665

== ENCOUNTER → 2024-11-01 | Outpatient (CLI) | payer OTHER ==
--- NOTE | 2024-11-01 15:42 | US ---
EXAMINATION TYPE: US thyroid st tissue head/neck DATE OF EXAM: 11/01/2024 COMPARISON: Thyroid ultrasound 10/11/2023, 10/09/2022 CLINICAL INDICATION: Male, 59 years old with history of E04.1 THYROID NODULE; Follow up nodule. TECHNIQUE: Grayscale and color Doppler imaging of the thyroid gland. FINDINGS: GLAND SIZE: Right Lobe: 4.8 x 1.9 x 1.7 cm Overall Parenchyma: homogeneous Left Lobe: 4.0 x 2.1 x 1.3 cm Overall Parenchyma: homogeneous Isthmus Thickness: 0.5 cm NODULES RIGHT: # of nodules measured on right: 0 LEFT: # of nodules measured on left: 0 ISTHMUS: # of nodules measured in the isthmus: 1 1. 0.3 X 0.3 x 0.3 cm right lateral solid or almost completely solid, hyperechoic nodule, which is wider than tall, with smooth margins, with echogenic foci. TR 4 Prior size: 0.4 x 0.3 x 0.4 cm Bilateral neck scanned, no evidence of lymphadenopathy. IMPRESSION: Stable calcified subcentimeter TR 4 nodule. No new or enlarging thyroid nodules. Highest TI-RADS level nodule reported: ACR TI-RADS LEVEL: TI-RADS 4: Follow if > 1 cm, FNA if > 1.5 cm [facility], , 11/01/2024 3:40 PM
== END | disposition home or self-care (01) ==
LOC: RADUSWWP 14:26
PROVIDERS: ATTEND Family Medicine
DX: E04.1 Nontoxic single thyroid nodule (principal)
CPT/HCPCS: 76536